=== PATIENT | male | born 1965 | race Caucasian/White ===

== ENCOUNTER 2021-02-01 16:16 | Inpatient (IN) | payer BC, SELFPAY ==
[2021-02-01 16:24] VITALS: BP 153/81; PULSE 81; RESP 15; TEMP 36.7; O2SAT 96; BMI 24.3
--- NOTE | 2021-02-01 16:35 | XRR_ITS ---
PROCEDURE INFORMATION: Exam: XR Left Femur Exam date and time: 02/01/2021 4:35 PM Age: 55 years old Clinical indication: Injury or trauma; Fall; Blunt trauma; Hip; Left; Additional info: Fall, thigh pain TECHNIQUE: Imaging protocol: XR Left femur. Views: 2 views. COMPARISON: No relevant prior studies available. FINDINGS: Bones/joints: Comminuted subtrochanteric proximal left femur fracture. Medial side fracture lucency extension through the lesser trochanter with mild displacement. Femoral head aligned with acetabulum. Moderate angulation deformity. Soft tissues: Unremarkable. XR/XR femur LT min 2V* [id number] IMPRESSION: Acute proximal left femur fracture.
[2021-02-01] MEDS: fentaNYL 50 mcg/mL INJ 2mL 100 MCG IVP ×2 (16:50→20:18)
--- NOTE | 2021-02-01 16:53 | ED_ITS ---
HPI - Fall General: Chief Complaint: Fall Stated Complaint: LEFT LEG PAIN S/P FALL Time Seen by Provider: 02/01/21 16:29 Source: patient and EMS Mode of arrival: EMS Limitations: no limitations History of Present Illness: HPI Narrative: Patient is a 55-year-old male who was skating at a skating rink on when he was turned and twisted fell and landed on the concrete. He has severe pain to his left thigh. He has no other injuries. He denies hitting his head or losing consciousness. He is unable to bear weight. MD complaint: fall Onset (ago): minute(s) (30) Fall from: other (skating) Fall witnessed: yes, by family Place fall occurred: other Loss of consciousness: None Prolonged down time: no Symptoms prior to fall: none Context: tripped/slipped Location of injury - extremities: Left: thigh Severity: severe Quality: sharp Associated symptoms-after fall: Denies abdominal pain, chest pain, confusion, difficulty walking, headache(s), hematuria, lightheadedness, neck pain, numbness, short of breath, vertigo or weakness Review of Systems General: Reports: 10 or more systems reviewed and unremarkable except in HPI and below Card: Denies: chest pain or lightheadedness GI: Denies: abdominal pain : Denies: hematuria Musc: Denies: neck pain Neuro: Denies: headache(s), difficulty walking, vertigo or confusion Physical Exam Const: COMMON NORMALS: average body habitus, patient oriented x3, no limitations, healthy appearing, alert and well nourished GENERAL APPEARANCE: in distress HENMT: COMMON NORMALS: normocephalic, atraumatic and moist oral mucous membranes HEAD & SCALP: normocephalic and atraumatic Eye: COMMON NORMALS: Equal, round and reactive pupils present, EOMs intact bilaterally, conjunctivae normal and no scleral icterus CONJUNCTIVA: Yes conjunctivae normal PUPIL: Yes Equal, round and reactive pupils present Neck/C-Spine: COMMON NORMALS: full ROM, supple, no meningeal signs, no JVD and No carotid bruits Resp: COMMON NORMALS: normal respiratory effort, No retractions, No use of accessory muscles, clear to auscultation bilaterally and percussion normal AUSCULTATION: clear to auscultation bilaterally PERCUSSION: percussion normal Cardio: COMMON NORMALS: no JVD, regular rate, regular rhythm, S1 normal heart sound present, S2 normal heart sound present, No gallops present (Cardio), No clicks present (Cardio), No murmurs present (Cardio), No rub (Cardio) and Peripheral pulses 2+ throughout RATE: regular rate RHYTHM: regular rhythm HEART SOUNDS: S1 normal heart sound present and S2 normal heart sound present PERIPHERAL PULSES: Peripheral pulses 2+ throughout GI: COMMON NORMALS: Normal to inspection, nondistended, normoactive bowel sounds present, Soft to palpation, non-tender, No hepatosplenomegaly present, no masses and no bruits PALPATION: Yes Soft to palpation and Yes No hepatosplenomegaly present Extremity: COMMON NORMALS: normal to inspection, full ROM, capillary refill normal, no calf tenderness and no pedal edema RIGHT LOWER EXTREMITY: Yes upper leg Right upper leg: Yes inspection (deformity noted in the proximal thigh), Yes palpation (marked tenderness to palpation) and Yes neurovascular exam (intact) Neuro: COMMON NORMALS: patient oriented x3 SENSORIUM/ORIENTATION: Yes alert MENINGEAL SIGNS: Yes no meningeal signs Skin: COMMON NORMALS: no rashes or lesions noted, no wounds, turgor normal, no jaundice, no petechiae and no mottling GENERAL SKIN EXAM: no rashes or lesions noted and turgor normal Procedures Orthopedic Fracture Reduction Fracture #1: Time Out Performed: Yes Side: left Fracture Reduction Location: femur Analgesia: procedural sedation Technique: traction/counter-traction Post-reduction neuro exam: intact and no change Post-reduction vascular exam: intact and no change Splint Applied: Yes Patient Tolerated Procedure: well Orthopedic Splinting/Casting Injury #1: Side: left Lower Extremity Injury Location: upper leg Lower Extremity Immobilizer: posterior splint Procedural Sedation Indication: fracture/dislocation reduction ASA Class: I Preparation: vehicle monitor technician applied, pulse oximeter and supplemental O2 applied IV Etomidate dose (mg): 7 Patient Tolerated Procedure: well Complications: none Course Consultations: Consultation #1: Discussed the patient with Dr. Conde, orthopedic surgeon and he advised that the patient be admitted to the hospitalist service. He will take him to the OR tomorrow. Time: 18:46 Consultation #2: Discussed patient with Dr. Harp, hospitalist and she kindly accepted the patient to her service. Time: 20:00 Vital Signs: Vital signs: Vital Signs Temperature 98.0 F 02/01/21 16:24 Pulse Rate 89 02/01/21 21:30 Respiratory Rate 22 H 02/01/21 21:50 Blood Pressure 170/83 02/01/21 21:30 Pulse Oximetry 99 02/01/21 21:50 MDM - Fall MDM Narrative: Medical decision making narrative: 55 year old male who sustained a proximal femoral fracture following a fall at a skating rink. He is has remained stable in the ED. Leg splinted for pain control. He is admitted to the hospital for surgery in the morning Medical Records: Attestation: I reviewed the patient's medical records. Lab Data: Attestation: I reviewed the patient's lab results. Labs: Lab Results 02/01/21 02/01/21 02/01/21 Range/Units 19:20 19:20 19:20 WBC 8.5 (4.0-10.0) 10^3/ uL RBC 4.39 (4.1-5.3) 10^6/u L Hgb 11.5 L (11.7-16.6) g/dL Hct 34.9 L (42.0-52.0) % MCV 79.5 L (80-94) fl MCH 26.2 L (28.0-34.0) pg MCHC 33.0 (30.0-36.0) g/dL RDW 15.6 H (12.1-15.1) % Plt Count 122 L (130-400) 10^3/c mm MPV 10.6 H (7.4-10.4) fL Neut % (Auto) 86.2 % Lymph % (Auto) 6.1 % [place] % (Auto) 6.4 % Eos % (Auto) 0.1 % Baso % (Auto) 0.8 % Neut # (Auto) 7.35 (1.8-7.7) 10^3/u L Lymph # (Auto) 0.5 L (0.8-4.8) 10^3/u L [place] # (Auto) 0.6 (0.2-0.9) 10^3/u L Eos # (Auto) 0.0 (0.0-0.8) 10^3/u L Baso # (Auto) 0.1 (0.0-0.1) 10^3/u L Nucleated RBC % (a uto) 0 % Nucleated RBCs # 0.0 /100WBC Sodium 134 L (136-145) mmol/L Potassium 4.4 (3.5-5.1) mmol/L Chloride 101 (98-107) mmol/L Carbon Dioxide 20 L (22-29) mmol/L Anion Gap 17.4 (5-19) BUN 7 (6-20) mg/dL Creatinine 0.7 (0.7-1.2) mg/dL GFR Calculation 116.7 (90-130) mL/min Glucose 155 H (65-115) mg/dL Calculated Osmolal ity 279 L (285-295) mOsm/k g Calcium 8.2 L (8.5-10.5) mg/dL Total Bilirubin 0.4 (0.15-1.2) mg/dL AST 47 H (0-40) U/L ALT 35 (0-41) U/L Alkaline Phosphata se 64 (40-130) IU/L Total Protein 7.2 (6.6-8.7) g/dL Albumin 4.1 (3.5-5.2) g/dL Globulin 3.1 (1.3-4.6) g/dL Blood Type A Positive Rho(D) Type Positive / 4+ Antibody Screen Negative Imaging Data^: CXR: Attestation: I personally reviewed and interpreted this imaging study as follows: Radiologist's impression: [address] [id number] ReportSigned Patient: Luis Enrique Craft #: [id number]: 1965Acct#:[id number]/Sex: 55 / MADM Date: 02/01/21Loc: ERRoom/Bed:Attending Dr: Ordering Provider/Ordering MD: Simone Obrien MD, [facility] Date of Service: 02/01/21 Procedure(s): XR chest 1V portable [id number] Accession Number(s): [id number] Report Number: [id number] PROCEDURE INFORMATION: Exam: XR Chest Exam date and time: 02/01/2021 5:15 PM Age: 55 years old Clinical indication: Injury or trauma; Fall; Blunt trauma (contusions or hematomas); Additional info: Preop TECHNIQUE: Imaging protocol: XR of the chest. Views: 1 view. COMPARISON: No relevant prior studies available. FINDINGS: Lungs: Unremarkable. No consolidation. Pleural spaces: Unremarkable. No pleural effusion. No pneumothorax. Heart/Mediastinum: Unremarkable. No cardiomegaly. Bones/joints: Unremarkable. XR/XR chest 1V portable [id number] IMPRESSION: No acute findings. Dictated By:Jim Rodriguez By:Sukh RodriguezinStatum Date/Time:02/01/213DD/ 10 Xray Ortho: Attestation: I personally reviewed and interpreted this imaging study as follows: Radiologist's impression: [place] [address] [id number] ReportSigned Patient: Luis Enrique Craft #: [id number]: 1965Acct#:[id number]/Sex: 55 / MADM Date: 02/01/21Loc: ERRoom/Bed:Attending Dr: Ordering Provider/Ordering MD: Simone Obrien MD, [facility] Date of Service: 02/01/21 Procedure(s): XR femur LT min 2V* [id number] Accession Number(s): [id number] Report Number: [id number] PROCEDURE INFORMATION: Exam: XR Left Femur Exam date and time: 02/01/2021 4:35 PM Age: 55 years old Clinical indication: Injury or trauma; Fall; Blunt trauma; Hip; Left; Additional info: Fall, thigh pain TECHNIQUE: Imaging protocol: XR Left femur. Views: 2 views. COMPARISON: No relevant prior studies available. FINDINGS: Bones/joints: Comminuted subtrochanteric proximal left femur fracture. Medial side fracture lucency extension through the lesser trochanter with mild displacement. Femoral head aligned with acetabulum. Moderate angulation deformity. Soft tissues: Unremarkable. XR/XR femur LT min 2V* [id number] IMPRESSION: Acute proximal left femur fracture. Dictated By:Sukh RodriguezinStatum By:Sukh RodriguezinStatum Date/Time:02/01/21 1814DD/ 11 Discharge Plan Discharge Patient Disposition: Admitted As Inpatient Admit Provider: Mandie Harp Clinical Impression: Closed left femoral fracture Qualifiers: Encounter type: initial encounter Femur location: subtrochanteric Fracture alignment: displaced Qualified Code(s): S72.22XA - Displaced subtrochanteric fracture of left femur, initial encounter for closed fracture Condition: Stable Coding Level of Care Code ED [employer] And Adjuster for [facility]
[2021-02-01 16:54] VITALS: BP 153/81; PULSE 85; RESP 15; O2SAT 95
--- NOTE | 2021-02-01 17:15 | XRR_ITS ---
PROCEDURE INFORMATION: Exam: XR Chest Exam date and time: 02/01/2021 5:15 PM Age: 55 years old Clinical indication: Injury or trauma; Fall; Blunt trauma (contusions or hematomas); Additional info: Preop TECHNIQUE: Imaging protocol: XR of the chest. Views: 1 view. COMPARISON: No relevant prior studies available. FINDINGS: Lungs: Unremarkable. No consolidation. Pleural spaces: Unremarkable. No pleural effusion. No pneumothorax. Heart/Mediastinum: Unremarkable. No cardiomegaly. Bones/joints: Unremarkable. XR/XR chest 1V portable [id number] IMPRESSION: No acute findings.
[2021-02-01] MEDS: HYDROmorphone 1 mg/mL INJ 1 mL IVP (17:45)
[2021-02-01 19:38] LABS: Basophils # 0.1 10^3/uL (0.0-0.1); Basophils % 0.8 %; Eosinophils % 0.1 %; Hematocrit 34.9 % (42.0-52.0); Hemoglobin 11.5 g/dL (11.7-16.6); Lymphocytes # 0.5 10^3/uL (0.8-4.8); Lymphocytes % 6.1 %; Mean Corpuscular Hemoglobin 26.2 pg (28.0-34.0); Mean Corpuscular Volume 79.5 fl (80-94); Mean Platelet Volume 10.6 fL (7.4-10.4); Monocytes # 0.6 10^3/uL (0.2-0.9); Monocytes % 6.4 %; Neutrophils # 7.35 10^3/uL (1.8-7.7); Neutrophils % 86.2 %; Nucleated Red Blood Cells % 0 %; Platelet Count 122 10^3/cmm (130-400); Red Blood Count 4.39 10^6/uL (4.1-5.3); Red Cell Distribution Width 15.6 % (12.1-15.1); White Blood Count 8.5 10^3/uL (4.0-10.0)
[2021-02-01] MEDS: fentaNYL 50 mcg/mL INJ 2mL IVP (19:50)
[2021-02-01 20:18] VITALS: RESP 24; O2SAT 98
[2021-02-01 20:18] LABS: Alanine Aminotransferase 35 U/L (0-41); Albumin Level 4.1 g/dL (3.5-5.2); Alkaline Phosphatase 64 IU/L (40-130); Anion Gap 17.4 (5-19); Aspartate Amino Transferase 47 U/L (0-40); Blood Urea Nitrogen 7 mg/dL (6-20); Calcium 8.2 mg/dL (8.5-10.5); Carbon Dioxide 20 mmol/L (22-29); Chloride 101 mmol/L (98-107); Globulin 3.1 g/dL (1.3-4.6); Glomerular Filtration Rate 116.7 mL/min (90-130); Glucose 155 mg/dL (65-115); Osmolality Calculated 279 mOsm/kg (285-295); Potassium 4.4 mmol/L (3.5-5.1); Sodium 134 mmol/L (136-145); Total Bilirubin 0.4 mg/dL (0.15-1.2); Total Protein 7.2 g/dL (6.6-8.7)
[2021-02-01 20:31] VITALS: BP 177/78; PULSE 84; RESP 18; O2SAT 97
--- NOTE | 2021-02-01 20:32 | PC.NURSE ---
PT REPORTS MEDICATION FINALLY GETTING HIM SOME RELIEF . PT RESTING WITH EYES CLOSED AND EVEN RESPIRATIONS. LONG LEG, POSTERIOR SPLINT (LEFT LEG) PLACED BY DR. TOVAR AT 1950 WITHOUT INCIDENT.
[2021-02-01 21:30] VITALS: BP 170/83; PULSE 89; RESP 22; O2SAT 100
--- NOTE | 2021-02-01 21:42 | PC.NURSE ---
Attempt to schedule patient on surgical dental assistant without success. Surgery is at 1100. Surgical team notified by live process.
[2021-02-01 21:50] VITALS: RESP 22; O2SAT 99
[2021-02-01] MEDS: oxyCODONE 5 mg IR Tab/Cap 10 MG PO (21:50)
--- NOTE | 2021-02-01 22:01 | PM.HP ---
Providers/Chief Complaint Admitting Physician: Mandie Harp MD Chief Complaint: LEFT LEG PAIN S/P FALL History of Present Illness Jak Craft is a 55 year old male with a past medical history of depression presenting today with a mechanical fall sustained while skating. This resulted in comminuted fracture of the left femoral neck. He is planned for surgical correction with orthopedics. At this present time patient complains of pain at site of injury. Currently poorly controlled with morphine and oxycodone. ROS negative for any chest pain dyspnea palpitations syncope poor exercise capacity etc. No abdominal pain nausea vomiting or diarrhea. Review of Systems General: Reports: 10 or more systems reviewed and unremarkable except in HPI and below Const: Denies: fever(s), chills or body aches Eyes: Denies: change in vision, blurry vision or photophobia ENMT: Reports: hoarseness; Denies: throat pain, enlarged tonsils, odynophagia or nasal congestion Card: Denies: chest pain, palpitations, irregular heart rhythm, edema, swelling of feet/ankles, lightheadedness, pre-syncope, dyspnea on exertion or orthopnea Resp: Denies: dyspnea, productive cough, non-productive cough, wheezing, stridor, pain on inspiration, change in phlegm color, hemoptysis or chest congestion GI: Denies: abdominal pain, nausea, vomiting, hematemesis, coffee ground emesis, dysphagia, heartburn, diarrhea, constipation, GI cramping, change in stool character, hematochezia or melena : Denies: flank pain, dysuria, urinary frequency, urinary urgency, urinary hesitancy or hematuria Musc: Denies: neck pain, back pain, extremity pain, joint swelling, joint warmth or deformity Neuro: Denies: headache(s), numbness in extremities, weakness in extremities, sensory changes, difficulty walking, frequent falls, dizziness, vertigo, behavioral changes, Slurred speech present or seizure-like activity Psych: Denies: anxiety, depression, suicidal ideation or homicidal ideation Endo: Denies: polyuria, polydipsia, tired all the time, cold intolerance or hot flashes Thai/Lymph: Denies: easy bruising or easy bleeding Medications/Allergies Home Medications Medication Instructions Recorded Confirmed Last Taken Type fluoxetine 40 mg PO DAILY 02/01/21 02/01/21 02/01/21 History lorazepam 0.5 mg PO DAILY PRN 02/01/21 02/01/21 Unknown History lorazepam 1 - 2 mg PO DAILY PRN 02/01/21 02/01/21 Unknown History Allergies Allergy/AdvReac Type Severity Reaction Status Date / Time No Known Allergies Allergy Unverified 02/01/21 18:07 Vitals/I&O/Wt Last Vital Signs Temp 98.0 F 02/01/21 16:24 Pulse 89 02/01/21 21:30 Resp 22 H 02/01/21 21:50 BP 170/83 02/01/21 21:30 Pulse Ox 99 02/01/21 21:50 Weight last 48 hrs Weight 72.575 kg Physical Exam Narrative: EXAM NARRATIVE: General: No acute distress, AO x3 HEENT: PERRLA, pupils bilaterally equal and reactive, pallors not present Chest: Normal vesicular breath sounds, no added sounds, equal good air entry bilaterally CVS: S1-S2 regular, no murmurs, no tachycardia, no gallops, no rubs Abdomen: Soft, nontender, no organomegaly, bowel sounds present Neuro: No focal deficits, no facial deformity, AO x3, power 5/5 in all limbs Extremities: Left lower extremity currently in splint with Reese bandage wrapped around. Swelling over proximal thigh. No distal neurovascular deficits. Data : 02/01/21 23:41 02/01/21 19:20 A&P Assessment and plan (1) Closed left femoral fracture: Admit to [facility]. Plan for surgical correction tomorrow with orthopedics. Currently complains of uncontrolled pain, add as needed morphine and Percocet. N.p.o. post midnight Normal saline at 75 cc an hour. Patient has a past medical history of depression, no known cardiac risk factors. no contraindication from medicine standpoint to proceed with surgery in a.m. 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
[2021-02-01] MEDS: orphenadrine 30 mg/mL Inj 2 mL 60 MG IVP (22:07)
[2021-02-01] MEDS: sodium chloride 0.9% 1,000 ML 75 ML IV (23:31)
[2021-02-01] MEDS: morphine 4 mg/mL SDV 1 mL 2 MG IVP (23:34)
[2021-02-01] MEDS: oxyCODONE-APAP 5-325 mg Tablet 1 TAB PO (23:34)
[2021-02-01] MEDS: ondansetron 2 mg/ML SDV 2 mL 4 MG IVP (23:35)
--- NOTE | 2021-02-01 23:36 | CTR_ITS ---
PROCEDURE INFORMATION: Exam: CT Left Lower Extremity With Contrast; Thigh Exam date and time: 02/01/2021 11:36 PM Age: 55 years old Clinical indication: Swelling, leg or foot; Patient HX: L prox femur FX w increased swelling; Additional info: Femoral fracture, leg swelling increasing TECHNIQUE: Imaging protocol: CT of the Left lower extremity with intravenous contrast was performed. Exam focused on the thigh. Radiation optimization: All CT scans at this facility use at least one of these dose optimization techniques: automated exposure control; mA and/or kV adjustment per patient size (includes targeted exams where dose is matched to clinical indication); or iterative reconstruction. Contrast material: OMNI 300; Contrast volume: 95 ml; Contrast route: INTRAVENOUS (IV); COMPARISON: CR (LOW EXM, ) 02/01/2021 4:41 PM RADIATION DOSE METRICS: Total DLP (mGy-cm): 2198.57 FINDINGS: Bones/joints: There is comminuted spiral oblique fracture of the proximal left femur involving also the lesser trochanter is seen on prior plain radiographs. There is mild displacement and overriding at the fracture. Soft tissues: There is marked swelling in the anterior compartment of the thigh especially surrounding the vastus intermedius muscle which is decreased in density consistent with some edema. There is also some edema involving some of the abductor muscles. No large discrete hematoma is identified. Vasculature: Common femoral and femoral arteries are intact. Profundus femoral artery branches are also intact. There is collapse or flattening of a long segment of the left femoral vein. The proximal femoral vein fills via per fundal branches. One could not exclude injury to the left femoral vein, however there is no evidence of significant hematoma to suggest vascular injury. CT/CT femur LT w con [id number] IMPRESSION: 1. Comminuted fracture proximal left femur. 2. Muscular swelling in the thigh particularly involving the vastus intermedius muscle in the anterior compartment. 3. Question of possible injury to the proximal left femoral vein. Correlation with the clinical findings is suggested. 4. No large hematoma is identified. Radiation Dose CTDIVOL = (mGy): DLP = 2198.57 (mGy-cm)
[2021-02-01 23:48] LABS: Basophils # 0.1 10^3/uL (0.0-0.1); Basophils % 0.8 %; Eosinophils % 0.1 %; Hemoglobin 11.4 g/dL (11.7-16.6); Lymphocytes # 0.6 10^3/uL (0.8-4.8); Lymphocytes % 5.8 %; Mean Corpuscular HGB Conc 32.6 g/dL (30.0-36.0); Mean Corpuscular Hemoglobin 25.9 pg (28.0-34.0); Mean Corpuscular Volume 79.4 fl (80-94); Mean Platelet Volume 10.4 fL (7.4-10.4); Monocytes # 1.1 10^3/uL (0.2-0.9); Monocytes % 10.3 %; Neutrophils # 9.04 10^3/uL (1.8-7.7); Neutrophils % 82.6 %; Nucleated Red Blood Cells % 0 %; Platelet Count 130 10^3/cmm (130-400); Red Blood Count 4.41 10^6/uL (4.1-5.3); Red Cell Distribution Width 15.6 % (12.1-15.1); White Blood Count 10.9 10^3/uL (4.0-10.0)
[2021-02-02] VITALS (32 sets, daily range): BP systolic 109–185; BP diastolic 62–92; PULSE 69–111; RESP 16–22; TEMP 36.7–38.1; O2SAT 93–100; BMI 24.3
--- NOTE | 2021-02-02 | XR_ITS ---
WS: [id number] C-ARM RADIOGRAPHS LEFT FEMUR; 4 IMAGES HISTORY: DAMIEN PICS COMPARISON: 02/02/2021 Lung intramedullary armani and gamma nail stabilize a proximal femur fracture now in good alignment. Dis riky locking screw is also noted. XR/XR femur LT 1V [id number] IMPRESSION: Intraoperative ORIF proximal femur fracture now in good position.
--- NOTE | 2021-02-02 | SCC_ITS ---
Procedure Done: Intramedullary rodding left femur 112.2 seconds of fluoroscopic guidance, for a cumulative dose of 8.92 mGy, was provided to Dr. Conde by the radiology department. C-arm images of the LEFT femur were saved for the patient's permanent record. [facility] DIVISION[facility]el
[2021-02-02] MEDS: iohexol 300 mg/mL 100 mL Btl IV (00:15)
[2021-02-02 00:42] LABS: SARS Covid-2 Antigen Negative (Negative)
[2021-02-02] MEDS: HYDROmorphone 1 mg/mL INJ 1 mL IVP ×2 (01:06→05:10)
[2021-02-02] MEDS: LORazepam 0.5 mg Tablet PO (02:10)
[2021-02-02] MEDS: morphine 4 mg/mL SDV 1 mL 2 MG IVP ×3 (03:48→22:03)
--- NOTE | 2021-02-02 08:42 | PC.NURSE ---
patient taken to preop
--- NOTE | 2021-02-02 09:14 | SUR.PHASEI ---
PT AWAKE ALERT C/O OF SEVERE PAIN TO HIP DR JIANG AT BEDSIDE SEE PAIN MED GIVEN BY , PT PLACED ON 2LNC SATS UP TO 96% PT SLEEPS OFF AND ON NOW AND STATES PAIN IS MUCH BETTER,
--- NOTE | 2021-02-02 09:19 | ANES.PREANE2 ---
Pre-Anesthetic Assessment Pre-Anesthetic Assessment: Height/Weight: Height 1.73 m Weight 72.575 kg Temp Pulse Resp BP Pulse Ox 99.7 F H 84 18 185/88 94 02/02/21 08:51 02/02/21 08:51 02/02/21 08:51 02/02/21 08:51 02/02/21 08:51 Proposed Procedure: Operation Date: 02/02/21 06:55 Proposed Procedures p Trochanteric Femoral Nail(Left) - Prince Conde MD Was Beta Ac taken within 24 hours: N/A Was Clonidine taken within 24 hours: N/A Last intake: Intake Last Liquid Date 02/01/21 Last Liquid Time 23:59 Last Solid Date 02/01/21 Last Solid Time 17:30 Social: Social History: Alcohol and Tobacco Exam: Pre-Anes Outpt Exam: alert, oriented x 3 and regular rate & rhythm Airway: Submandibular: WNL Cervical ROM: WNL MP: 2 Dentition: Chipped Pulmonary: Pulmonary: COPD Neuropsych: Neuropsych: Anxiety and Depression Anesthetic Plan: ASA status: 2 Anesthesia: Regional (specify below) (SAB) Risk of > 500 ml blood loss (7ml/kg in children): Yes, adequate IV access and fluids planned Meds/Allergies Current Medications: Current Medications Generic Name Dose Route Start Last Admin Trade Name Freq PRN Reason Stop Dose Admin Hydromorphone HCl 1 mg 02/02/21 00:47 02/02/21 05:10 Hydromorphone 1 Mg/Ml Inj 1 Ml IVP 1 mg Q4H PRN Administration MODERATE TO SEVER E PAIN Sodium Chloride 1,000 mls @ 75 ml s/hr 02/01/21 22:15 02/02/21 09:15 Sodium Chloride 0.9% IV Infused .[id number] GIORGIO Infusion Lorazepam 0.5 mg 02/02/21 01:48 02/02/21 02:10 Lorazepam 0.5 Mg Tablet PO 0.5 mg DAILY PRN Administration Anxiety Morphine Sulfate 2 mg 02/01/21 22:02 02/02/21 03:48 Morphine 4 Mg/Ml Sdv 1 Ml IVP 2 mg Q4H PRN Administration SEVERE PAIN Ondansetron HCl 4 mg 02/01/21 22:02 02/01/21 23:35 Ondansetron 2 Mg /Ml Sdv 2 Ml IVP 4 mg Q8H PRN Administration vomiting, or N/V if npo Oxycodone/Acetamin ophen 1 tab 02/01/21 22:02 02/01/21 23:34 Oxycodone-Apap 5 -325 Mg Tablet PO 1 tab Q4H PRN Administration SEVERE PAIN Data Anesthesia CBC & Chem 7: 02/01/21 23:41 02/01/21 19:20 Other Labs: Laboratory Results - last 48 hr 02/01/21 02/01/21 02/01/21 19:20 19:20 19:20 WBC 8.5 RBC 4.39 Hgb 11.5 L Hct 34.9 L MCV 79.5 L MCH 26.2 L MCHC 33.0 RDW 15.6 H Plt Count 122 L MPV 10.6 H Neut % (Auto) 86.2 Lymph % (Auto) 6.1 [place] % (Auto) 6.4 Eos % (Auto) 0.1 Baso % (Auto) 0.8 Neut # (Auto) 7.35 Lymph # (Auto) 0.5 L [place] # (Auto) 0.6 Eos # (Auto) 0.0 Baso # (Auto) 0.1 Nucleated RBC % (auto) 0 Nucleated RBCs # 0.0 Sodium 134 L Potassium 4.4 Chloride 101 Carbon Dioxide 20 L Anion Gap 17.4 BUN 7 Creatinine 0.7 GFR Calculation 116.7 Glucose 155 H Calculated Osmolality 279 L Calcium 8.2 L Total Bilirubin 0.4 AST 47 H ALT 35 Alkaline Phosphatase 64 Total Protein 7.2 Albumin 4.1 Globulin 3.1 SARS-CoV-2 Ag (Rapid) Blood Type A Positive Rho(D) Type Positive / 4+ Antibody Screen Negative 02/01/21 02/01/21 23:41 23:51 WBC 10.9 H RBC 4.41 Hgb 11.4 L Hct 35.0 L MCV 79.4 L MCH 25.9 L MCHC 32.6 RDW 15.6 H Plt Count 130 MPV 10.4 Neut % (Auto) 82.6 Lymph % (Auto) 5.8 [place] % (Auto) 10.3 Eos % (Auto) 0.1 Baso % (Auto) 0.8 Neut # (Auto) 9.04 H Lymph # (Auto) 0.6 L [place] # (Auto) 1.1 H Eos # (Auto) 0.0 Baso # (Auto) 0.1 Nucleated RBC % (auto) 0 Nucleated RBCs # 0.0 Sodium Potassium Chloride Carbon Dioxide Anion Gap BUN Creatinine GFR Calculation Glucose Calculated Osmolality Calcium Total Bilirubin AST ALT Alkaline Phosphatase Total Protein Albumin Globulin SARS-CoV-2 Ag (Rapid) Negative Blood Type Rho(D) Type Antibody Screen Cardiac Studies: No Data to Display
--- NOTE | 2021-02-02 09:45 | PM.CONSULT ---
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 He was admitted to the hospital for pain control and management of his femur by the hospitalist. 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 He denies any preceding hip pain or use of ambulatory aids. Meds/Allergies Home Medications and Allergies Home Medications Medication Instructions Recorded Confirmed Last Taken Type fluoxetine 40 mg PO DAILY 02/01/21 02/01/21 02/01/21 History lorazepam 0.5 mg PO DAILY PRN 02/01/21 02/01/21 Unknown History lorazepam 1 - 2 mg PO DAILY PRN 02/01/21 02/01/21 Unknown History Allergies Allergy/AdvReac Type Severity Reaction Status Date / Time No Known Allergies Allergy Unverified 02/01/21 18:07 Current Medications Current Medications Generic Name Dose Route Start Last Admin Trade Name Freq PRN Reason Stop Dose Admin Hydromorphone HCl 1 mg 02/02/21 00:47 02/02/21 05:10 Hydromorphone 1 Mg/Ml Inj 1 Ml IVP 1 mg Q4H PRN Administration MODERATE TO SEVERE PAIN Sodium Chloride 1,000 mls @ 75 mls/hr 02/01/21 22:15 02/02/21 09:15 Sodium Chloride 0.9% IV Infused .[id number] GIORGIO Infusion Lorazepam 0.5 mg 02/02/21 01:48 02/02/21 02:10 Lorazepam 0.5 Mg Tablet PO 0.5 mg DAILY PRN Administration Anxiety Morphine Sulfate 2 mg 02/01/21 22:02 02/02/21 03:48 Morphine 4 Mg/Ml Sdv 1 Ml IVP 2 mg Q4H PRN Administration SEVERE PAIN Ondansetron HCl 4 mg 02/01/21 22:02 02/01/21 23:35 Ondansetron 2 Mg/Ml Sdv 2 Ml IVP 4 mg Q8H PRN Administration vomiting, or N/V if npo Oxycodone/Acetaminophen 1 tab 02/01/21 22:02 02/01/21 23:34 Oxycodone-Apap 5-325 Mg Tablet PO 1 tab Q4H PRN Administration SEVERE PAIN Vitals/I&O/Wt Last Vital Signs Temp 99.7 F H 02/02/21 08:51 Pulse 93 02/02/21 09:23 Resp 18 02/02/21 09:23 BP 168/74 02/02/21 09:23 Pulse Ox 98 02/02/21 09:23 02/01/21 02/02/21 02/02/21 22:59 06:59 14:59 Intake Total 1000 / 1000 Output Total 450 / 450 Balance -2 / -2 550 / 550 Weight last 48 hrs Weight 160 lb Weight 160 lb Physical Exam Narrative: EXAM NARRATIVE: Jak has clear shortening and external rotation of the left hip. He has exquisite pain with motion of the hip. He has expected swelling in his left thigh. He will flex and extend his toes and his ankle without any motor deficits. Strong dorsalis pedis pulse. Sensation intact to light touch. Data Imaging^: Xray Ortho: My impression: Radiographs of the right hip are reviewed. The patient has a comminuted subtrochanteric femur fracture consisting of a proximal distal and free lesser trochanteric fragment A&P Assessment and plan (1) Subtrochanteric fracture of left femur: The patient sustained a displaced subtrochanteric femur fracture. He has a laboring male. He certainly would require open reduction and internal fixation to minimize pain allow mobilization and ensure healing. I think the best implant would be an intramedullary device. I discussed options with the patient.. I told the patient we could treat this nonoperatively but certainly they would be at risk for medical problems without surgery. Theywould have problems with pain that would require narcotics for pain control. They would require a long period of bedrest data warehouse architect risk for pneumonia and skin breakdown. I discussed surgical intervention with the patient. I told them with open reduction internal fixation they should be able to be mobilized and resume ambulatory status. We can eliminate the problems associated with prolonged bed rest and would have better control of pain. Certainly there would be inherent risk with surgery. These would would include the risk of cardiac complications, stroke, infection, and even . I discussed risk of any orthopedic implant including nonunion, malunion, a component failure. I discussed the possible need for component removal. I discussed risk of deep venous thromboses and pulmonary emboli that are present with any treatment and the importance of DVT prophylaxis. The patient expressed good understanding of alternative treatments, seem to comprehend, and agrees to surgical intervention. Status: Acute Coding Level of Care Code Acute Forestry Supervisor for Malick Garcia Diagnoses Subtrochanteric fracture of left femur S72.22XA
--- NOTE | 2021-02-02 11:38 | P.OP_ITS ---
Operative Report Date of procedure: February 02, 2021 Pre-op Diagnosis: Comminuted left subtrochanteric femur fracture Post-op diagnosis: same Post-op Findings: Same Procedure Done: Intramedullary rodding left femur Implants: [place] Gamma [id number], 105 mm lag screw, 45mm distal locking screw Pathology: none sent Surgeon: Prince Conde Anesthesia: Nerve Block (Spinal) Estimated blood loss (mL): 100 Complications: None Findings: The patient had a displaced comminuted subtrochanteric femur fracture consisting of a spiral fracture below the level of a free large lesser trochanteric fragment Condition: stable Disposition: PACU Procedure: The patient was taken to the operating room. They were given 1 g of Ancef. They were positioned on the fracture table with the right lower extremity in gentle traction. A timeout was performed. A 2 cm long incision was made proximal to the greater trochanter scalpel blade. Dissection was carried down to tip the greater trochanter. A guidepin was passed from the tip of the trochanter down the shaft. The proximal reamer was utilized to open up the proximal canal. Next a 5 cm long incision was made at the level of the fracture site. Dissection was carried down through the fascia zahra and vastus lateralis to the lateral femur. A large clamp was used to reduce the anterior displaced proximal fragment to the posterior shaft. I ball-tipped guidewire was passed across the fracture. Reaming was accomplished up to 12.5 mm. An 11 mm 380 Haroldo gamma nail was passed down the canal without difficulty. Under visualization of fluoroscopy a guidepin was driven up into the head and neck at 125? angle. It was measured at 105 mm in length and a lag screw similar length was then placed and locked into place with the proximal locking screw. [The static guides were then used to pass the distal locking screw.] Intraoperative imaging was obtained verifying satisfactory position of the hardware and reduction of the fracture. Deep tissues were closed with 0 Vicryl as were subcutaneous tissues. The skin was closed with skin bryon. Sterile dressings were applied. The patient was extubated and taken to recovery room in stable condition.
--- NOTE | 2021-02-02 11:38 | SUR.PHASEI ---
PT WITH GOOD RESP EFFORT , PT DOES NOTE AWAKE TO STRONG TOUCH OR VOICE, VSS LT HIP DRESSING X 3 D/I FIRST ICE TO LT HIP DISTAL FOOT PINK WARM WITH STRONG REGULAR PULSE NOTED AND MARKED.
--- NOTE | 2021-02-02 13:33 | PM.PN ---
Subjective Subjective: Interval history: Patient to be taken to the OR for surgical intervention requested CPK to rule rhabdomyolysis and uric acid Vitals/I&O/Wt Last Vital Signs Temp 99.1 F 02/02/21 11:55 Pulse 71 02/02/21 11:55 Resp 22 H 02/02/21 11:55 BP 139/70 02/02/21 11:55 Pulse Ox 100 02/02/21 11:55 02/01/21 02/02/21 02/02/21 22:59 06:59 14:59 Intake Total 1060 / 1060 Output Total 2 / 550 / 550 Balance -2 / -2 510 / 510 Weight last 48 hrs Weight 72.575 kg Weight 72.575 kg Physical Exam Narrative: EXAM NARRATIVE: No acute distress EOMI, PERRLA Normal breath sound no audible stridor or wheezing S1, S2 no murmur Soft abdomen No neurological deficit Left lower extremity with splint no vascular compromise Data : 02/01/21 23:41 02/01/21 19:20 A&P Assessment and plan (1) Subtrochanteric fracture of left femur: Status: Acute Additional A&P Information Acute subtrochanteric fracture of left femur We will go for surgical intervention, Dr. Benedict consulted N.p.o. DVT prophylaxis to be started after intervention Opiates urology Bowel regimen PT evaluation after surgery Resume diet after intervention Full code Attestations Medical Necessity Statement*: Surgical intervention today Time Spent in Patient Care: less than 15 minutes Coding Level of Care Code Acute Slot Machine Floor Person for Malick Garcia Diagnoses Subtrochanteric fracture of left femur S72.22XA
[2021-02-02] MEDS: chlorhexidine gluconate 0.12% Btl 473 mL 30 ML MUCOUS MEM ×3 (14:23→21:00)
[2021-02-02] MEDS: sodium chloride 0.9% 1,000 ML 100 ML IV (14:25)
[2021-02-02] MEDS: HYDROcodone-acetaminophen 5-325 mg Tablet 1 TAB PO ×2 (15:37→21:00)
--- NOTE | 2021-02-02 15:48 | PC.OT ---
OT evaluation withheld this date per patient request. Patient had left hip surgery done earlier this date. He is complaining of left hip pain of 12/28. Nursing administered 5-325 hydrocodone. To attempt to do OT evaluation on a later date. Nursing notified.
[2021-02-02] MEDS: LORazepam 1 mg Tablet PO (16:56)
[2021-02-02 17:27] LABS: Creatine Phosphokinase 776 U/L (39-308)
--- NOTE | 2021-02-02 17:40 | PC.NURSE ---
notified Dr Saez that patient's CK is 970
[2021-02-02] MEDS: sennosides-docusate Tablet 2 TAB PO (18:18)
[2021-02-02] MEDS: mupirocin oint 22 gm 1 APPLIC NASAL (18:22)
--- NOTE | 2021-02-02 18:25 | PC.NURSE ---
notified Dr Saez that patient has rash to shoulders. patient said when he gets stressed he gets a rash. patient was given ativan, morphine and hydrocodone.
--- NOTE | 2021-02-02 18:27 | PC.NURSE ---
cefazolin would not scan. filing writer tried to scan other cefazolin in fridge. they would not scan either. verified with 2 nurses and manually administered.
--- NOTE | 2021-02-02 19:20 | PC.NURSE ---
RE-ENFORCED DRESSING TO LEFT HIP AND LEFT LATERAL THIGH. MODERATE AMOUNT OF BLOODY DRAINAGE TO BOTH DRESSINGS. PT TOLERATED WELL. ICE PACK PLACE TO SITE AND PT REPOSITIONED
--- NOTE | 2021-02-02 22:05 | PC.NURSE ---
i reported high reps 20 to nurse
[2021-02-03] VITALS (12 sets, daily range): BP systolic 135–176; BP diastolic 51–78; PULSE 96–111; RESP 16–20; TEMP 36.6–37.3; O2SAT 94–99
[2021-02-03] MEDS: sodium chloride 0.9% 1,000 ML 100 ML IV ×2 (00:57→09:49)
[2021-02-03] MEDS: morphine 4 mg/mL SDV 1 mL 2 MG IVP ×2 (00:58→20:31)
[2021-02-03 03:25] LABS: Basophils # 0.1 10^3/uL (0.0-0.1); Basophils % 0.8 %; Eosinophils % 0.5 %; Hematocrit 23.5 % (42.0-52.0); Hemoglobin 7.6 g/dL (11.7-16.6); Lymphocytes % 16.1 %; Mean Corpuscular HGB Conc 32.3 g/dL (30.0-36.0); Mean Corpuscular Hemoglobin 26.3 pg (28.0-34.0); Mean Corpuscular Volume 81.3 fl (80-94); Mean Platelet Volume 10.8 fL (7.4-10.4); Monocytes % 15.6 %; Neutrophils # 4.23 10^3/uL (1.8-7.7); Neutrophils % 66.7 %; Nucleated Red Blood Cells % 0 %; Platelet Count 92 10^3/cmm (130-400); Red Blood Count 2.89 10^6/uL (4.1-5.3); Red Cell Distribution Width 15.1 % (12.1-15.1); White Blood Count 6.3 10^3/uL (4.0-10.0)
[2021-02-03 03:47] LABS: Anion Gap 13.7 (5-19); Blood Urea Nitrogen 10 mg/dL (6-20); Calcium 7.6 mg/dL (8.5-10.5); Carbon Dioxide 24 mmol/L (22-29); Chloride 100 mmol/L (98-107); Glucose 120 mg/dL (65-115); Osmolality Calculated 278 mOsm/kg (285-295); Potassium 3.7 mmol/L (3.5-5.1); Sodium 134 mmol/L (136-145)
[2021-02-03] MEDS: HYDROcodone-acetaminophen 5-325 mg Tablet 1 TAB PO ×5 (04:11→22:32)
--- NOTE | 2021-02-03 07:36 | XR_ITS ---
WS: [id number] PORTABLE CHEST HISTORY: post op fever COMPARISON: 02/01/2021 Lungs are clear and well expanded. No pleural effusion or pneumothorax. Cardiac size: Normal. Mediastinum/Aorta: Normal mediastinum. No osseous abnormality seen. XR/XR chest 1V portable [id number] IMPRESSION: Unremarkable portable chest.
[2021-02-03 08:15] LABS: Hematocrit 23.3 % (42.0-52.0); Hemoglobin 7.3 g/dL (11.7-16.6)
[2021-02-03] MEDS: sennosides-docusate Tablet 2 TAB PO ×2 (09:46→17:55)
[2021-02-03] MEDS: chlorhexidine gluconate 0.12% Btl 473 mL 30 ML MUCOUS MEM ×4 (09:47→20:03)
[2021-02-03] MEDS: mupirocin oint 22 gm 1 APPLIC NASAL ×2 (09:47→17:56)
[2021-02-03] MEDS: enoxaparin 40 mg/0.4 mL Syringe SUBCUT (11:10)
--- NOTE | 2021-02-03 12:22 | P.PN_ITS ---
Subjective Subjective: Interval history: Still complains of pain but adequately controlled with oral medications. Passing urine. Good p.o. intake. Vitals/I&O/Wt Last Vital Signs Temp 98.6 F 02/03/21 07:31 Pulse 100 02/03/21 07:31 Resp 18 02/03/21 07:31 BP 166/78 02/03/21 07:31 Pulse Ox 99 02/03/21 07:31 02/02/21 02/03/21 02/03/21 22:59 06:59 14:59 Intake Total 480 / 1780 1540 / 3320 1426.667 / 1426.667 Output Total 950 / 1500 700 / 2200 Balance -470 / 280 840 / 1120 1426.667 / 1426.667 Weight last 48 hrs Weight 160 lb Weight 160 lb Physical Exam Narrative: EXAM NARRATIVE: Left hip dressings clean and dry. Expected swelling left thigh. No distal left neurovascular deficits Data : 02/03/21 08:00 02/03/21 02:38 Micro: Microbiology 02/03/21 08:06 Blood Culture - Preliminary Blood SPECIMEN COLLECTED 02/03/21 08:00 Blood Culture - Preliminary Blood SPECIMEN COLLECTED A&P Assessment and plan (1) Subtrochanteric fracture of left femur: Status: Acute (2) Postoperative state: Begin to mobilize with therapy. Really not very mobile as of yet. Possible discharge tomorrow. Status: Acute (3) Postoperative anemia: Check hemoglobin in a.m. does not appear symptomatic at this time Status: Acute Attestations Medical Necessity Statement*: Consider discharge tomorrow when more mobile Coding Level of Care Code Acute Door And Arrival Attendant for Malick Garcia Diagnoses Subtrochanteric fracture of left femur S72.22XA Postoperative state Z98.890 Postoperative anemia D64.9
[2021-02-03] MEDS: LORazepam 1 mg Tablet PO (12:34)
--- NOTE | 2021-02-03 13:17 | CT_ITS ---
WS: [id number] CT LEFT FEMUR WITH CONTRAST. HISTORY: anemia post op Technique: All CT scans at [facility] use at least one of these dose optimization techniq ues: automated exposure control; mA and/or kV adjustment per patient size (includes targeted exams wh ere dose is matched to clinical indication); or iterative reconstruction. DLP: 1123.13 mGy.cm COMPARISON: 02/02/2021. Long intramedullary armani placement and gamma nail placement stabilizing an oblique fracture in the pro ximal femoral diaphysis. Extensive edema within the muscles and soft tissues. In the gluteus muscles of the LEFT hip there are serpiginous areas of increased density which could be small muscular branch es that are actively extravasating. Additional areas of increased density adjacent to the fracture si te are probably fracture fragments. There is no large well formed collection or hematoma. CT/CT femur LT w con [id number] IMPRESSION: 1. Status post recent ORIF proximal LEFT femur fracture. 2. Possible active extravasation from a very small muscular branches near the LEFT gluteal muscles. No enlarging hematoma identified. 3. Extensive infiltration of soft tissues which is probably related to edema a nd bleeding.
--- NOTE | 2021-02-03 13:19 | PM.PN ---
Subjective Subjective: Interval history: No overnight events, postoperative anemia noted, Requested 1 unit PRBC Patient complaining of left thigh pain, requested CT of leg to rule out hematoma No active GI bleed patient is endorsing history of variceal bleed, alcohol liver cirrhosis Vitals/I&O/Wt Last Vital Signs Temp 98.4 F 02/03/21 12:00 Pulse 111 H 02/03/21 12:00 Resp 20 H 02/03/21 12:00 BP 161/51 02/03/21 12:00 Pulse Ox 96 02/03/21 12:00 02/02/21 02/03/21 02/03/21 22:59 06:59 14:59 Intake Total 480 / 1780 1540 / 3320 1426.667 / 1426.667 Output Total 950 / 1500 700 / 2200 Balance -470 / 280 840 / 1120 1426.667 / 1426.667 Weight last 48 hrs Weight 72.575 kg Weight 72.575 kg Physical Exam Narrative: EXAM NARRATIVE: Pleasant cooperative male who was laying in his bed without active discomfort however notices discomfort on ambulation of left leg Complaining of swelling of left thigh No neurovascular compromise of left leg noted Mild hematoma around groin area No active bleeding Abdomen soft nontender EOMI, PERRLA S1, S2 Hemodynamically stable Data : 02/03/21 08:00 02/03/21 02:38 Micro: Microbiology 02/03/21 08:06 Blood Culture - Preliminary Blood SPECIMEN COLLECTED 02/03/21 08:00 Blood Culture - Preliminary Blood SPECIMEN COLLECTED A&P Assessment and plan (1) Postoperative anemia: Status: Acute (2) Postoperative state: Status: Acute (3) Subtrochanteric fracture of left femur: Status: Acute (4) Thrombocytopenia: Status: Acute Additional A&P Information Postop day 1 Status post intramedullary armani left femur Postop anemia noted HemoGlobin dropped from 11.4-7.6 Requested 1 unit PRBC no active GI bleed, patient complaining of swelling of left thigh, will request CT of left thigh to rule out hematoma Repeat H&H at 6 PM Hemodynamically stable No active GI bleed. I would add Protonix Thiamine and folic acid Orthopedic recommendations appreciated, PT evaluation today, total weightbearing recommended, possible discharge tomorrow if hemoglobin stable Chronic thrombocytopenia secondary to liver cirrhosis Carry history of portal hypertension Gastric varices history Full code Regular diet DVT prophylaxis Lovenox will discontinue if we notice active bleeding/hematoma in thigh however I do believe this is related to postoperative anemia, will add iron supplementation Attestations Medical Necessity Statement*: Continue medical management, possible discharge tomorrow Time Spent in Patient Care: less than 15 minutes Coding Level of Care Code Acute Loss Control Representative for Meryg Fwd Diagnoses Postoperative anemia D64.9 Postoperative state Z98.890 Subtrochanteric fracture of left femur S72.22XA Thrombocytopenia D69.6
[2021-02-03] MEDS: iohexol 300 mg/mL 100 mL Btl IV (13:58)
[2021-02-03 14:21] LABS: Add Urine Microscopic? NO; Charge for UA Resulting for Rev
[2021-02-03 14:32] LABS: Urine Appearance Clear (CLEAR); Urine Color Dark Yellow (Yellow)
[2021-02-03 14:33] LABS: Bilirubin Urine Neg (Negative); Blood Urine Neg (Negative); Glucose Urine UA 4+ (Normal); Ketones Urine 1+ (Negative); Leukocyte Esterase Urine Negative (Negative); Nitrate Urine Negative (Negative); Protein Urine Neg (Negative); Urobilinogen Urine 1 mg/dL (Negative); pH Urine 5 (5-7)
[2021-02-03] MEDS: sodium chloride 0.9% (100 ml) 100 ML (15:18)
[2021-02-03] MEDS: iron polysaccharide complex 150 mg Capsule PO (17:55)
[2021-02-03 18:19] LABS: Hematocrit 27.3 % (42.0-52.0); Hemoglobin 8.9 g/dL (11.7-16.6)
[2021-02-04] VITALS (7 sets, daily range): BP systolic 117–161; BP diastolic 66–77; PULSE 86–108; RESP 17–20; TEMP 36.5–37.4; O2SAT 95–99
[2021-02-04 01:22] LABS: Quest SARS-CoV-2 RNA NOT DETECTED (NOT DETECTED)
--- NOTE | 2021-02-04 01:28 | PC.NURSE ---
PT OUT OF ROOM WITH WALKER IN [place] IN FRONT OF HIS DOORWAY STATING HE NEEDED TO GO TO [facility]. PT STATED HE HAD A DREAM HE WAS GOING TO IF HE STAYED HERE. PT VERY ADAMANT ABOUT LEAVING. PT HARD TO CALM DOWN AT THIS TIME. WC BROUGHT TO PT AND PT ASSISTED TO SITTING POSITION. PT STATES HIS LEFT LE IS SWOLLEN AND GETTING WORSE AND HE HAS DOCTORS IN [place] THAT CAN HELP HIM, I NEED A SECOND OPINION . IF I STAY HERE I'M GOING TO . PT FINALLY AGREE TO ALLOW STAFF TO MOVE HIM INTO HIS ROOM VIA WC. PT BEGAN TO CALL 911 WHEN IN ROOM. AT THIS TIME THIS NURSE, CHARGE NURSE ROSA, ALEJA BOWERS AND WEI HUMPHREYS ARE ALL AT BEDSIDE TRYING TO REORIENT PT WITH LITTLE SUCESS. ONCALL PROVIDER NOTIFIED OF PT CHANGE IN CONDITION AND WILL BE TO UNIT TO EVALUATE. PT SHOWS SIGNS OF HIGH ANXIETY AND DETOX. PT ADMITS TO DAILY ALCOHOL CONSUMPTION AND PTSD. PT MODERATING SWEATING, SEVERE VISIBLE TREMORS AND VISUAL HALLUCINATIONS, THINKING NURSE ALEJA WAS HIS EX-, CALLING OUT TO HER FOR ASSISTANCE. ICE PACK PLACED TO LEFT UPPER THIGH. ALL UNSAFE MATERIALS REMOVED FROM ROOM, ROOM CLEANED AND ORGANIZED. STAFF TO STAY IN ROOM WITH PT UNTIL PROVIDER IS AVAILABLE FOR EVALUATION/ORDERS
--- NOTE | 2021-02-04 01:59 | PM.EVENT ---
Event Note Event Note: Called with patient wanting to leave the hospital. He was walking around in the hallway not wanting to go back to his room. He was tremulous. Not really agitated but determined to leave as he wanted to go to [place] to get a second opinion. He also thought a floor nurse was his . He is aware of being at [facility], not in [place] where he is from. He knows the year. After some discussion he admitted he was scared about the degree of swelling in his leg and bruising on scrotum. Left thigh is swollen, bruising noted medially extending into the groin and to pubic area/scrotum. No area tender out of proportion to what I would expect. Laterally, dressings are intact postoperatively. No abnormal movements/yelling in pain with palpation of thigh into groin. Explained that it is not abnormal to have swelling and bruising after an injury and surgical repair. Had a CT thigh 02/03 showing the following: CT LEFT FEMUR WITH CONTRAST. HISTORY: anemia post op Technique: All CT scans at [facility] use at least one of these dose optimization techniques: automated exposure control; mA and/or kV adjustment per patient size (includes targeted exams where dose is matched to clinical indication); or iterative reconstruction. DLP: 1123.13 mGy.cm COMPARISON: 02/02/2021. Long intramedullary armani placement and gamma nail placement stabilizing an oblique fracture in the proximal femoral diaphysis. Extensive edema within the muscles and soft tissues. In the gluteus muscles of the LEFT hip there are serpiginous areas of increased density which could be small muscular branches that are actively extravasating. Additional areas of increased density adjacent to the fracture site are probably fracture fragments. There is no large well formed collection or hematoma. CT/CT femur LT w con [id number] IMPRESSION: 1. Status post recent ORIF proximal LEFT femur fracture. 2. Possible active extravasation from a very small muscular branches near the LEFT gluteal muscles. No enlarging hematoma identified. 3. Extensive infiltration of soft tissues which is probably related to edema and bleeding. Laboratory Tests 02/03/21 02/03/21 02/03/21 02:38 08:00 18:12 Hgb 7.6 L D 7.3 L 8.9 L Received 1 unit PRBCs 8/16 with increase in Hgb to 8.9 After discussion, patient agreeable to staying until morning for repeat evaluation by orthopedics here, daytime hospitalist, and repeat lab draw. I have instituted CIWA protocol as there definitely could be an element of alcohol withdrawal at play here with the tremors, tachycardia, confusion exhibited. He drinks normally a 6 pack per day by report. Nurses present during my evaluation; plans discussed with them. Event Notes Attestations Time Spent in Patient Care: 16 - 35 minutes (>than 50% of time spent in counselling and/or direct pt care on unit). 26 minutes reviewing chart, discussing with nursing, talking to patient, placing orders and writing note
[2021-02-04] MEDS: LORazepam 2 mg/mL INJ 1 mL IVP ×2 (02:08→03:56)
--- NOTE | 2021-02-04 02:10 | PC.NURSE ---
Agitation: Pt awoke agitated wanting to leave this hospital and go to [place] for a second opinion. Pt showing signs of alcohol detox and while admitting to drinking a 6 pack of beer a day states that he is not detoxing and just wants to go home or to another hospital. Showing significant tremors, agitation, some confusion (thought another nurse was his ) and paranoia the night hospitalist was asked to come and evaluate the patient. 2mg Ativan IV given per CIWA protocol. Medication was overrode in the pyxis by mortgage underwriter per Physician orders to be given immediately. Medication given by JASON Amor who linked both orders together (the PRN and the override). Pt now resting in bed, says he is feeling better. Will continue to monitor and give medications as appropriate.
--- NOTE | 2021-02-04 02:11 | PC.NURSE ---
2 MG IVP ATIVAN PULLED FROM PYXIS BY CHARGE AND ADMIN TO PT BY THIS NURSE WITH VERBAL ORDER GIVEN BY DR. BARRAGAN AT BEDSIDE.
--- NOTE | 2021-02-04 02:37 | PC.NURSE ---
PT RESTING IN BED WITH EYES CLOSED. RESP EVEN/UNLABORED. BED ALARM ON, CALL LIGHT WITHIN REACH. WILL CONTINUE TO MONITOR.
[2021-02-04 03:04] LABS: Basophils % 0.6 %; Eosinophils % 0.4 %; Hematocrit 25.3 % (42.0-52.0); Hemoglobin 8.2 g/dL (11.7-16.6); Lymphocytes # 0.7 10^3/uL (0.8-4.8); Lymphocytes % 10.7 %; Mean Corpuscular HGB Conc 32.4 g/dL (30.0-36.0); Mean Corpuscular Hemoglobin 26.2 pg (28.0-34.0); Mean Corpuscular Volume 80.8 fl (80-94); Mean Platelet Volume 11.2 fL (7.4-10.4); Monocytes # 0.9 10^3/uL (0.2-0.9); Neutrophils # 5.13 10^3/uL (1.8-7.7); Neutrophils % 74.9 %; Nucleated Red Blood Cells % 0 %; Platelet Count 105 10^3/cmm (130-400); Red Blood Count 3.13 10^6/uL (4.1-5.3); Red Cell Distribution Width 14.6 % (12.1-15.1); White Blood Count 6.9 10^3/uL (4.0-10.0)
--- NOTE | 2021-02-04 03:50 | PC.NURSE ---
PT AWOKE CONFUSED, NOT ABLE TO TELL THIS NURSE WHERE HE WAS OR WHAT HAPPEN. PT DOES NOT RECOGNIZED ME HIS NURSE AT THIS TIME. PT REQUESTING TO SEE HIS . UNABLE TO REORIENT PT. NOTICEABLE SWEATING AND MODERATE TREMORS PRESENT. WEI HUMPHREYS ASKED TO REMAIN WITH PT I INFORM CHARGE NURSE AND ASSESS PT CIWA. PT SCORES 26 ON CIWA. WEI HUMPHREYS NOW REQUESTING HELP D/T PT TRYING TO GET OUT OF BED AND VIOLENTLY KICKING HIS LEGS, STATING HE WAS LEAVING TO GO SEE HIS . GIVING PT HIS PHONE TO CALL , CALMED HIM DOWN ENOUGH TO ADMIN ORDERED DOSE OF ATIVAN PER CIWA SCORE.
--- NOTE | 2021-02-04 04:10 | PC.NURSE ---
PT RESTING IN BED WITH EYES CLOSED. RESP EVEN/UNLABORED. NOTED TREMOR ACTIVITY STILL PRESENT. BED ALARM SET, CALL LIGHT WITHIN REACH.
--- NOTE | 2021-02-04 05:19 | PC.NURSE ---
PT RESTING IN BED WITH EYES CLOSED. RESP EVEN/UNLABORED. SKIN WARM/DRY. SLIGHT TREMOR NOTED AT REST. BED ALARM ON, CALL LIGHT AND PERSONAL ITEMS WITH IN REACH.
--- NOTE | 2021-02-04 06:37 | PC.NURSE ---
PT RESTING IN BED WITH EYES CLOSED. RESP EVEN/UNLABORED. SKIN WARM/DRY. NO VISUAL TREMORS NOTED AT THIS TIME. BED ALARM ON, CALL LIGHT AND PERSONAL ITEMS WITH IN REACH.
[2021-02-04] MEDS: multivitamin therapeutic Tablet 1 TAB PO (08:05)
[2021-02-04] MEDS: sennosides-docusate Tablet 2 TAB PO ×2 (08:05→17:28)
[2021-02-04] MEDS: iron polysaccharide complex 150 mg Capsule PO ×2 (08:05→17:29)
[2021-02-04] MEDS: folic acid 1 mg Tablet PO (08:05)
[2021-02-04] MEDS: thiamine 100 mg Tablet PO (08:05)
[2021-02-04] MEDS: HYDROcodone-acetaminophen 5-325 mg Tablet 1 TAB PO ×2 (08:06→16:20)
[2021-02-04] MEDS: LORazepam 2 mg Tablet PO (08:06)
[2021-02-04] MEDS: mupirocin oint 22 gm 1 APPLIC NASAL (08:06)
[2021-02-04] MEDS: chlorhexidine gluconate 0.12% Btl 473 mL 30 ML MUCOUS MEM ×2 (08:06→12:11)
--- NOTE | 2021-02-04 08:30 | PC.NURSE ---
called patient's Joi [phone] and updated her on patient's night. she said patient has a alcohol problem and then he mixes anxiety medication with it and it makes it worse. she said he has been in a coma before for going threw withdrawal. she said patient wants to go home but she don't think it is safe for him to go home at this time. She said she would try to find someone to bring her to see patient because she don't have a drivers license. She also said she would like the doctor to call him so she can voice her concerns. Dr Conde and Dr Saez notified.
--- NOTE | 2021-02-04 08:36 | P.PN_ITS ---
Subjective Subjective: Interval history: Patient up with therapy. Tolerating p.o. diet. Passing urine. Nursing describes of patient agitated and confused last night. Vitals/I&O/Wt Last Vital Signs Temp 98.7 F 02/04/21 07:12 Pulse 105 H 02/04/21 07:12 Resp 18 02/04/21 07:12 BP 154/76 02/04/21 07:12 Pulse Ox 97 02/04/21 07:12 02/03/21 02/04/21 02/04/21 22:59 06:59 14:59 Intake Total 1268.333 / 2695.000 745 / 3440.000 551.667 / 551.667 Output Total 200 / 200 950 / 1150 500 / 500 Balance 1068.333 / 2495.000 -205 / 2290.000 51.667 / 51.667 Physical Exam Narrative: EXAM NARRATIVE: Slight drainage left hip. Expected swelling left thigh. Data : 02/04/21 02:04 02/03/21 02:38 Micro: Microbiology 02/03/21 08:06 Blood Culture - Preliminary Blood NEGATIVE TO DATE 02/03/21 08:00 Blood Culture - Preliminary Blood NEGATIVE TO DATE A&P Assessment and plan (1) Subtrochanteric fracture of left femur: Status: Acute (2) Postoperative state: Continue to mobilize with therapy. I have concerns about confusion and night and his history of substance abuse. Withdrawals may be an issue. Patient wants to go home but does not have transportation. Status: Acute (3) Postoperative anemia: Hemoglobin acceptable and patient relatively asymptomatic. Status: Acute Attestations Medical Necessity Statement*: As per medicine Coding Level of Care Code Acute Business Operations Coordinator for Malick Fwcandy Diagnoses Subtrochanteric fracture of left femur S72.22XA Postoperative state Z98.890 Postoperative anemia D64.9
--- NOTE | 2021-02-04 09:29 | PC.NURSE ---
patient sitting in wheelchair in doorway of room
[2021-02-04] MEDS: PHENobarbital 32.4 mg Tablet PO (10:27)
[2021-02-04 10:47] LABS: Hematocrit 23.4 % (42.0-52.0); Hemoglobin 7.8 g/dL (11.7-16.6)
--- NOTE | 2021-02-04 14:17 | P.PN_ITS ---
Subjective Subjective: Interval history: Overnight events noted, I have called his who is stating that his last alcoholic drink was probably 5 nights ago, he does get alcohol withdrawal from time to time, he is a who is struggling with PTSD, he has history of alcohol abuse however was in remission until a month ago and started drinking again because of anxiety unemployment and COVID-19 pandemic stress He does get belligerent sometimes with his alcohol withdrawal symptoms. Today when I saw him he was sitting in a wheelchair in the hallway Was able to communicate, he told me his date of and name and his 's name however was not oriented to place He knew that he parked his car in the parking lot and needs a ride back home is stating that he is able to pick him up tomorrow Today I have asked nurse not to give Ativan, I would like to try low-dose phenobarbital and then transition 100 mg of phenobarbital p.o. which can be used as IM Mild withdrawal phenobarbital intramuscular dose 20 mg, severe withdrawal 200 mg IM which can be repeated every 30 minutes to 1 hour Vitals/I&O/Wt Last Vital Signs Temp 98.5 F 02/04/21 12:00 Pulse 95 02/04/21 12:00 Resp 18 02/04/21 12:00 BP 161/75 02/04/21 12:00 Pulse Ox 99 02/04/21 12:00 02/03/21 02/04/21 02/04/21 22:59 06:59 14:59 Intake Total 1268.333 / 2695.000 745 / 3440.000 1141.667 / 1141.667 Output Total 200 / 200 950 / 1150 500 / 500 Balance 1068.333 / 2495.000 -205 / 2290.000 641.667 / 641.667 Physical Exam Narrative: EXAM NARRATIVE: Patient was sitting in a wheelchair nail no active GI bleed Oriented to time and person but not place Alcohol withdrawal symptoms Anxiety, tremors, headache Yawning S1, S2 sinus rhythm Hypertensive Abdomen soft Swelling of his leg noted, his thigh is pretty tense, no active extravasation He is able to bear weight on his left leg No acute respite distress saturating well on room air Data : 02/04/21 10:36 02/03/21 02:38 Micro: Microbiology 02/03/21 08:06 Blood Culture - Preliminary Blood NEGATIVE TO DATE 02/03/21 08:00 Blood Culture - Preliminary Blood NEGATIVE TO DATE A&P Assessment and plan (1) Thrombocytopenia: Status: Acute (2) Postoperative anemia: Status: Acute (3) Subtrochanteric fracture of left femur: Status: Acute (4) Alcohol withdrawal: Status: Acute Additional A&P Information Postop day 2 intramedullary armani left femur Postoperative anemia Patient carries history of liver cirrhosis portal hypertension with gastric varices No active GI bleed Tense swelling of left thigh CPK repeat today Repeat H&H at 5 PM and if his hemoglobin is trickling down he might need another unit of PRBC CT scan of left femur does show extravasation of fluid edema however no active hematoma Alcohol withdrawal On [facility] protocol Phenobarbital intramuscular versus p.o. doses can be used 100 mg for minor withdrawal 200 mg for severe to moderate withdrawal Doses can be repeated every 30 minutes to 1 hour It is okay to use Ativan with phenobarbital, I have decreased the frequency of Ativan with phenobarbital Continue thiamine and folic acid Thrombocytopenia secondary to portal hypertension no acute worsening Home health services arranged Patient to return home tomorrow if clinically stable updated, nurse updated, director case updated Regular diet Holding DVT prophylaxis of Lovenox for now, SCDs Attestations Medical Necessity Statement*: Anticipating discharge tomorrow with home health services Time Spent in Patient Care: 16 - 35 minutes Coding Level of Care Code Acute Commercial Credit Head for Malick Garcia Diagnoses Thrombocytopenia D69.6 Postoperative anemia D64.9 Subtrochanteric fracture of left femur S72.22XA Alcohol withdrawal F10.239
[2021-02-04 16:03] LABS: Creatine Phosphokinase 1538 U/L (39-308)
--- NOTE | 2021-02-04 16:13 | PC.NURSE ---
notified Dr Saez that patient's CK is [phone]
[2021-02-04 16:55] LABS: Hemoglobin 7.5 g/dL (11.7-16.6)
[2021-02-04] MEDS: sodium chloride 0.9% 1,000 ML 100 ML IV (17:29)
[2021-02-05] VITALS (11 sets, daily range): BP systolic 123–167; BP diastolic 63–88; PULSE 83–103; RESP 16–22; TEMP 36.7–37.2; O2SAT 97–98
[2021-02-05] MEDS: PHENobarbital 32.4 mg Tablet 97.2 MG PO (01:42)
[2021-02-05 05:55] LABS: Basophils % 0.6 %; Eosinophils % 1.3 %; Hematocrit 21.8 % (42.0-52.0); Lymphocytes # 0.6 10^3/uL (0.8-4.8); Lymphocytes % 17.9 %; Mean Corpuscular HGB Conc 32.1 g/dL (30.0-36.0); Mean Corpuscular Hemoglobin 26.8 pg (28.0-34.0); Mean Corpuscular Volume 83.5 fl (80-94); Mean Platelet Volume 10.5 fL (7.4-10.4); Monocytes # 0.5 10^3/uL (0.2-0.9); Monocytes % 16.3 %; Neutrophils # 1.99 10^3/uL (1.8-7.7); Neutrophils % 63.6 %; Nucleated Red Blood Cells % 0 %; Platelet Count 105 10^3/cmm (130-400); Red Blood Count 2.61 10^6/uL (4.1-5.3); Red Cell Distribution Width 14.8 % (12.1-15.1); White Blood Count 3.1 10^3/uL (4.0-10.0)
[2021-02-05 06:19] LABS: Alanine Aminotransferase 20 U/L (0-41); Alkaline Phosphatase 44 IU/L (40-130); Anion Gap 10.4 (5-19); Aspartate Amino Transferase 40 U/L (0-40); Blood Urea Nitrogen 10 mg/dL (6-20); Calcium 7.4 mg/dL (8.5-10.5); Carbon Dioxide 24 mmol/L (22-29); Chloride 101 mmol/L (98-107); Globulin 2.3 g/dL (1.3-4.6); Glomerular Filtration Rate 116.7 mL/min (90-130); Glucose 126 mg/dL (65-115); Magnesium 1.9 mg/dL (1.7-2.3); Osmolality Calculated 275 mOsm/kg (285-295); Potassium 3.4 mmol/L (3.5-5.1); Sodium 132 mmol/L (136-145); Total Bilirubin 0.8 mg/dL (0.15-1.2); Total Protein 5.3 g/dL (6.6-8.7)
[2021-02-05 06:32] LABS: Creatine Phosphokinase 872 U/L (39-308)
[2021-02-05] MEDS: sodium chloride 0.9% 1,000 ML 100 ML IV (07:46)
[2021-02-05] MEDS: mupirocin oint 22 gm 1 APPLIC NASAL (08:23)
[2021-02-05] MEDS: chlorhexidine gluconate 0.12% Btl 473 mL 30 ML MUCOUS MEM ×2 (08:23→15:30)
[2021-02-05] MEDS: iron polysaccharide complex 150 mg Capsule PO (08:24)
[2021-02-05] MEDS: folic acid 1 mg Tablet PO (08:24)
[2021-02-05] MEDS: multivitamin therapeutic Tablet 1 TAB PO (08:24)
[2021-02-05] MEDS: sennosides-docusate Tablet 2 TAB PO (08:24)
[2021-02-05] MEDS: thiamine 100 mg Tablet PO (08:24)
[2021-02-05] MEDS: HYDROcodone-acetaminophen 5-325 mg Tablet 1 TAB PO ×3 (08:36→17:19)
--- NOTE | 2021-02-05 10:20 | PC.OT ---
Patient refused occupational therapy today, will attempt again tomorrow.
--- NOTE | 2021-02-05 11:18 | P.DS_ITS ---
Discharge Providers Date of Admission: 02/01/21 19:52 Date of Discharge: February 05, 2021 Attending Provider at Admission: Mandie Harp MD Attending Provider at Discharge: Yahir Saez MD Diagnoses at Discharge Discharge Diagnosis (1) Thrombocytopenia: Status: Acute (2) Postoperative anemia: Status: Acute (3) Subtrochanteric fracture of left femur: Status: Acute (4) Alcohol withdrawal: Status: Acute Reason for Visit Reason for Visit: LEFT LEG PAIN S/P FALL Hospital Course Hospital Course 55-year-old male who has history of alcohol-related liver cirrhosis, portal hypertension, gastric varices, presented today after sustaining a fall. He fell while doing [employer]. He was admitted on 02/01 for management of left subcapital femur fracture. Status post intramedullary armani of left femur. Postoperatively he did require 2 units of PRBC for anemia however no active GI bleed was noted. He does have history of thrombocytopenia related to portal hypertension. Home health services set up for him. Patient is very eager to go home and is not willing to stay in the hospital. His hospital course was complicated secondary to alcohol withdrawal symptoms however they improved with use of phenobarbital. He is coherent and able to make decisions for him today. On day of discharge he will be getting his second unit of PRBC. Hemodynamically he remained stable did not suffer from hypotension. He was counseled to use thiamine, folic acid and quit alcohol A prescription has been given for CBC within next 2 days Also repeating femur CT scan with contrast to rule out active bleeding or hematoma on day of discharge is coming to pick him up today. Platelet count remained stable he will be discharged home with aspirin 1025 mg DVT prophylactic regimen for 2 weeks, he is able to bear 50% of weight on his leg. His last alcoholic drink was 6 nights ago. Physical Exam Narrative: EXAM NARRATIVE: male who was sitting in a chair without active distress No neurovascular compromise of left leg noted Mild bruises, petechiae around groin area extending up to left thigh No active bleeding Abdomen soft nontender EOMI, PERRLA S1, S2 Hemodynamically stable Discharge Data Data Completed and Pending: Completed Studies During Hospitalization Category Date Time Status CT femur LT w con [id number] Routine Cat Scan 02/01/21 23:[address] femur LT w con [id number] Routine Cat Scan 02/03/21 13:17 Completed XR chest 1V chance ble [id number] Stat Exams 02/01/21 17:15 Completed XR chest 1V chance ble [id number] Stat Exams 02/03/21 07:36 Completed XR femur LT 1V 73 [id number] Routine Exams 02/02/21 Completed XR femur LT min 2 V* [id number] Stat Exams 02/01/21 16:35 Completed Pending at discharge Category Date Time Status CT femur LT w con [id number] Stat Cat Scan 02/05/21 11:13 Ordered Blood Culture Sta t Lab 02/03/21 08:06 Results Labs from last 24 hours 02/05/21 02/05/21 02/05/21 08:54 05:10 05:10 WBC 3.1 L RBC 2.61 L Hgb 7.0 L Hct 21.8 L MCV 83.5 MCH 26.8 L MCHC 32.1 RDW 14.8 Plt Count 105 L MPV 10.5 H Neut % (Auto) 63.6 Lymph % (Auto) 17.9 [place] % (Auto) 16.3 Eos % (Auto) 1.3 Baso % (Auto) 0.6 Neut # (Auto) 1.99 Lymph # (Auto) 0.6 L [place] # (Auto) 0.5 Eos # (Auto) 0.0 Baso # (Auto) 0.0 Nucleated RBC % (a uto) 0 Nucleated RBCs # 0.0 Sodium 132 L Potassium 3.4 L Chloride 101 Carbon Dioxide 24 Anion Gap 10.4 BUN 10 Creatinine 0.7 GFR Calculation 116.7 Glucose 126 H Calculated Osmolal ity 275 L Calcium 7.4 L Phosphorus 2.0 L Magnesium 1.9 Total Bilirubin 0.8 AST 40 ALT 20 Alkaline Phosphata se 44 Creatine Kinase 872 H* Total Protein 5.3 L Albumin 3.0 L Globulin 2.3 Blood Type A Positive Rho(D) Type Positive Antibody Screen Negative Crossmatch See Detail 02/04/21 02/04/21 16:25 02:04 WBC RBC Hgb 7.5 L Hct 23.0 L MCV MCH MCHC RDW Plt Count MPV Neut % (Auto) Lymph % (Auto) [place] % (Auto) Eos % (Auto) Baso % (Auto) Neut # (Auto) Lymph # (Auto) [place] # (Auto) Eos # (Auto) Baso # (Auto) Nucleated RBC % (a uto) Nucleated RBCs # Sodium Potassium Chloride Carbon Dioxide Anion Gap BUN Creatinine GFR Calculation Glucose Calculated Osmolal ity Calcium Phosphorus Magnesium Total Bilirubin AST ALT Alkaline Phosphata se Creatine Kinase 1538 H* Total Protein Albumin Globulin Blood Type Rho(D) Type Antibody Screen Crossmatch Vitals: Last Vital Signs Temp 98.3 F 02/05/21 11:04 Pulse 93 02/05/21 11:04 Resp 16 02/05/21 11:04 BP 123/63 02/05/21 11:04 Pulse Ox 97 02/05/21 11:04 Discharge Plan Discharge Patient Disposition: Home Health Service Condition: Stable Prescriptions: New hydrocodone-acetaminophen 5-325 mg Tablet 1 tab PO Q4H PRN (Reason: Moderate Pain) 7 Days Qty: 40 RF: 0 aspirin 325 mg Tablet,Delayed Release (Dr/Ec) 325 mg PO DAILY 14 Days Qty: 14 RF: 0 Ferrex 150 150 mg iron Capsule 150 mg PO Q48H Qty: 30 RF: 0 folic acid 1 mg Tablet 1 mg PO DAILY 30 Days Qty: 30 RF: 0 Vitamin B-1 (mononitrate) 100 mg Tablet 100 mg PO DAILY 30 Days Qty: 30 RF: 0 Stool Softener-Laxative 8.6-50 mg Tablet 2 tab PO BID 10 Days Qty: 40 RF: 0 omeprazole 20 mg capsule,delayed release(DR/EC) 20 mg PO DAILY Qty: 30 RF: 3 Continued fluoxetine 40 mg capsule 40 mg PO DAILY RF: 0 lorazepam 0.5 mg tablet 0.5 mg PO DAILY PRN (Reason: Anxiety) RF: 0 lorazepam 1 mg tablet 1 - 2 mg PO DAILY PRN (Reason: Anxiety) RF: 0 Discharge Orders: Discharge Order (Routine); Ordered 02/05/21 Ordered By: Yahir Saez Other Ambulatory Orders: Complete Blood Count w/Auto (Routine) Timeframe: 2 Days Location: Determined by Patient Ordered By: Yahir Saez DME: [facility] (Order) Location: None Selected Ordered By: Yahir Saez Referrals: [facility] [Other] (The Home Health company will call you with a time for them to complete initial assessment.) Prince Conde MD [Physician] - 2 weeks Discharge Diet: Advance as tolerated Discharge Activity: Resume usual activity Patient Instructions: Opioid Safety Activity Restrictions/Additional Instructions: Change dressing as needed for drainage Okay to shower once incisions free of drainage 50% weightbearing left lower extremity. Use walker Please get your hemoglobin checked within 2 days you can keep taking iron and folic acid along thiamine because of history of alcohol intake You received 2 units of blood during this hospitalization Home health services set up for you It were important that you quit drinking alcohol you can take Ativan that you have at home in case of active withdrawal symptoms in case of worsening of your symptoms or anemia you can come to the ER for further evaluation Discharge Attestations Time Spent in Discharge Care*: less than 30 min Quality Metrics Clinical Quality Measures During this hospital stay, did patient experience: None Coding Level of Care Code Acute Chg FW DC note Diagnoses Thrombocytopenia D69.6 Postoperative anemia D64.9 Subtrochanteric fracture of left femur S72.22XA Alcohol withdrawal F10.239
--- NOTE | 2021-02-05 11:19 | PC.NURSE ---
Blood started at 1104 by JASON Yanez
[2021-02-05] MEDS: sodium chloride 0.9% (100 ml) 100 ML 150 ML (13:50)
--- NOTE | 2021-02-05 14:07 | CTR_ITS ---
PROCEDURE INFORMATION: Exam: CTA Angiogram of the Abdominal Aorta and Bilateral Lower Extremities (Run-off) With IV Contrast Exam date and time: 02/05/2021 2:07 PM Age: 55 years old Clinical indication: Abdominal pain; Other: Left leg FX; Prior surgery; Surgery type: Post op left femur; Patient HX: Left femur FX TECHNIQUE: Imaging protocol: CT angiogram of the abdominal aorta, pelvis and bilateral lower extremities with IV iodinated contrast. 3D rendering (Not supervised by radiologist): MIP and/or 3D reconstructed images were created by the technologist. Radiation optimization: All CT scans at this facility use at least one of these dose optimization techniques: automated exposure control; mA and/or kV adjustment per patient size (includes targeted exams where dose is matched to clinical indication); or iterative reconstruction. Contrast material: OMNI 350; Contrast volume: 95 ml; Contrast route: INTRAVENOUS (IV); COMPARISON: CT femur LT w con [id number] 02/02/2021 12:01 AM RADIATION DOSE METRICS: Total DLP (mGy-cm): 1785.48 FINDINGS: Aorta: No aortic aneurysm. No aortic dissection. Celiac trunk and mesenteric arteries: No occlusion or significant stenosis. Renal arteries: No occlusion or significant stenosis. Right iliac arteries: No occlusion or significant stenosis. Right femoral/popliteal arteries: No occlusion or significant stenosis. Right infrapopliteal arteries: No occlusion or significant stenosis. Left iliac arteries: No occlusion or significant stenosis. Left femoral/popliteal arteries: No occlusion or significant stenosis. Left infrapopliteal arteries: No occlusion or significant stenosis. Portal Venous System: Prominent periesophageal varices noted. Liver: Diffuse hepatic steatosis. Mildly nodular cirrhotic liver morphology with hypertrophy of the left lobe. Gallbladder and bile ducts: Unremarkable. No calcified stones. No ductal dilation. Pancreas: 2 rounded hypoattenuating suspected cysts in the pancreatic head measuring up to 1.1 cm in size series 202, image 41 and series 3, image 69. Spleen: Mild splenomegaly measuring up to 14 cm in length. Adrenals: Normal. No mass. Kidneys and ureters: Normal. No mass. Stomach and bowel: Unremarkable. No obstruction. No mucosal thickening. Appendix: No evidence of appendicitis. Bladder: Mild circumferential wall thickening of the bladder without significant perivesicular inflammation. Reproductive: Unremarkable as visualized. Intraperitoneal space: Small volume free fluid in the pelvis and around the liver. Lymph nodes: Several enlarged retroperitoneal periaortic lymph nodes are noted measuring up to 1.6 cm in short axis series 3, image 94. Bones/joints: No acute fracture. No dislocation. Left hip intramedullary armani and screw traversing a comminuted proximal left femur fracture with displaced fragments and lesser trochanter. There is no evidence of vascular injury adjacent to the displaced fragments. Soft tissues: No evidence of vascular injury such as dissection, occlusion, active extravasation/hemorrhage, or hematoma formation. Punctate foci of air within the musculature and soft tissues anterior to the fracture and surgical bryon along the left lateral thigh corresponding to recent surgery. CT/CT angio abd aorta runof [id number] IMPRESSION: 1. Intramedullary armani and pin traversing a comminuted proximal left femur fracture with displaced fragments and lesser trochanter. No evidence of vascular injury. 2. Hepatic steatosis with cirrhotic morphology. Sequela of portal hypertension including prominent periesophageal varices, mild splenomegaly, and small volume ascites. 3. A couple rounded hypoattenuating lesions in the pancreatic head measuring up to 1.1 cm. 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 Would recommend non emergent follow-up CT/MRI in 1 year to evaluate for any interval change. 4. Mild circumferential wall thickening of the bladder. Correlate with urinalysis. 5. Several enlarged retroperitoneal lymph nodes, possibly reactive. Radiation Dose CTDIVOL = (mGy): DLP = 1785.48 (mGy-cm)
[2021-02-05 17:02] LABS: Hematocrit 25.9 % (42.0-52.0); Hemoglobin 8.3 g/dL (11.7-16.6)
[2021-02-05] MEDS: iohexol 350 mg/mL 100 mL Btl IV (17:07)
--- NOTE | 2021-02-11 10:55 | PC.SOCIAL ---
discharge follow up call made. pt has home health and PT. patient is using walker and feeling good. has follow up appointment with Dr. Conde 02-18.
== END 2021-02-05 17:49 | disposition home health service (06) | DRG 481 ==
LOC: ER 19:51 → MEDSURG 20:13
PROVIDERS: Orthopaedic Surgery; Admitting Provider Student in an Organized Health Care Education/Training Program; Emergency Provider Family Medicine; Visit Provider Internal Medicine
PROC: (CPT 27245; principal; 2021-02-02 06:55)
DX: S72.22XA Displaced subtrochanteric fracture of left femur, initial encounter for closed fracture (principal); F10.239 Alcohol dependence with withdrawal, unspecified; K76.6 Portal hypertension; W19.XXXA Unspecified fall, initial encounter; Y93.51 Activity, roller skating (inline) and skateboarding; Y92.480 Sidewalk as the place of occurrence of the external cause; F17.210 Nicotine dependence, cigarettes, uncomplicated; K70.30 Alcoholic cirrhosis of liver without ascites; D64.9 Anemia, unspecified; D69.6 Thrombocytopenia, unspecified; Z71.41 Alcohol abuse counseling and surveillance of alcoholic; Z20.822 Contact with and (suspected) exposure to COVID-19
CPT/HCPCS: 27240; 36415; 36430; 71045; 73551; 73552; 73701; 75635; 76000; 80048; 80053; 81003; 82550; 83735; 84100; 84550; 85014; 85018; 85025; 86850; 86900; 86920; 87040; 87426; 87635; 96372; 96374; 96375; 97116; 97161; 97165; 97530; 99285; 99291; 99292; C1713; J0690; J1170; J1650; J2060; J2250; J2270; J2360; J2370; J2405; J2704; J3010; J3490; J7030; P9016; Q9967